=== PATIENT | female | born 1970 | race Two or more races ===

== ENCOUNTER 2023-07-18 16:25 | Emergency (ER) | payer OTHER ==
[~2023-07-18] VITALS: Ht 165.1 cm; Wt 107.7 kg
[2023-07-18] MEDS ORDERED: KETOROLAC TROMETH 60MG/2ML VIAL IM ONE (17:30)
[2023-07-18] MEDS ORDERED: ACE3T PO (21:50)
[2023-07-18 21:51] VITALS: BP 132/84; PULSE 77; RESP 18; TEMP 97.6; O2SAT 96
[2023-07-18] MEDS ORDERED: ACETAMINOPHEN/CODEINE#3 (300/30mg) TAB PO ONE (22:00)
== END 2023-07-18 22:20 | disposition home or self-care (01) ==
LOC: ER 16:25
DX: M54.6 Pain in thoracic spine (principal); Z79.1 Long term (current) use of non-steroidal anti-inflammatories (NSAID); V89.2XXA Person injured in unspecified motor-vehicle accident, traffic, initial encounter; Y93.89 Activity, other specified; Y92.89 Other specified places as the place of occurrence of the external cause; Y99.8 Other external cause status
CPT/HCPCS: 72040; 72070; 96372; 99284; J1885